=== PATIENT | female | born 1960 | race Caucasian/White ===

== ENCOUNTER 2017-11-11 14:20 | Emergency (ER) | payer OTHER ==
[~2017-11-11] VITALS: Ht 167.6 cm; Wt 90.9 kg
[2017-11-11 14:25] VITALS: Ht 167.6 cm; Wt 90.9 kg
[2017-11-11] MEDS ORDERED: ATIVAN0.5 MG PO (14:29)
[2017-11-11] MEDS ORDERED: BAYER CHEWABLE81 MG PO (14:29)
[2017-11-11] MEDS ORDERED: VOLTAREN75 MG PO (18:28)
[2017-11-11] MEDS ORDERED: NORCO 7.5/325 T1 TA1 PO (18:28)
[2017-11-11 19:10] VITALS: BP 138/72
== END 2017-11-11 19:11 | disposition home or self-care (01) ==
LOC: D.ER 14:20
DX: S32.601A Unspecified fracture of right ischium, initial encounter for closed fracture (principal); W18.30XA Fall on same level, unspecified, initial encounter; Y93.89 Activity, other specified; Y92.512 Supermarket, store or market as the place of occurrence of the external cause; S92.301A Fracture of unspecified metatarsal bone(s), right foot, initial encounter for closed fracture; M25.562 Pain in left knee; M25.561 Pain in right knee; M25.532 Pain in left wrist; M25.531 Pain in right wrist; M54.2 Cervicalgia; M54.5 Low back pain; M25.552 Pain in left hip; M25.551 Pain in right hip

== ENCOUNTER → 2017-11-14 15:14 | Outpatient (CLI) | payer OTHER ==
[2017-11-11 14:25] VITALS: BMI 32.3
[~2017-11-14 15:14] MED LIST: ATIVAN0.5 MG PO; BAYER CHEWABLE81 MG PO; NORCO 7.5/325 T1 TA1 PO; VOLTAREN75 MG PO
== END | disposition home or self-care (01) ==
LOC: D.CT 15:14
DX: R10.2 Pelvic and perineal pain (principal)